=== PATIENT | male | born 1995 | race African-American/Black ===

== ENCOUNTER 2018-02-04 21:43 | Emergency (ER) | payer SELFPAY ==
[~2018-02-04] VITALS: Ht 177.8 cm; Wt 101.6 kg
[2018-02-04] MEDS ORDERED: IBUPROFEN 600 MG TAB PO STA (22:12)
== END 2018-02-04 22:35 | disposition home or self-care (01) ==
LOC: FSED 21:43
PROC: 2W3AXYZ Immobilization of Right Upper Arm using Other Device (ICD-10-PCS; principal; 2018-02-04)
DX: S46.011A Strain of muscle(s) and tendon(s) of the rotator cuff of right shoulder, initial encounter (principal); Y93.67 Activity, basketball; J45.909 Unspecified asthma, uncomplicated
CPT/HCPCS: 99283

== ENCOUNTER 2019-05-27 22:18 | Emergency (ER) | payer BC ==
[~2019-05-27] VITALS: Ht 180.3 cm; Wt 122.5 kg
--- OUTSIDE RECORDS SUMMARY | 2019-05-27 22:21 | XMS REPORT | Continuity of Care Document ---
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 Role Phone [employer] Unavailable Unavailable Problems Problem Status Onset Date Classification Date Reported Comments Source Short leg syndrome, left, acquired Active Problem 06/12/2018 Enayet Rahim Asthma, unspecified, unspecified status Active Problem 06/12/2018 Enayet Rahim Vitamin D deficiency Active Problem 06/12/2018 Enayet Rahim Screening cholesterol level Active Diagnosis 06/12/2018 Enayet Rahim Encounter to establish care Active Diagnosis 06/12/2018 Enayet Rahim Medications No Data Provided for This Section Allergies, Adverse Reactions, Alerts Substance Category Reaction Severity Reaction type Status Date Reported Comments Source Celontin Adverse Reaction anaphylaxis Adverse Reaction Active 05/29/2018 Enayet Rahim Bee venom Adverse Reaction swelling Adverse Reaction Active 05/29/2018 Enayet Rahim Amoxicillin Adverse Reaction vomiting Adverse Reaction Active 05/29/2018 Enayet Rahim Immunizations No Data Provided for This Section Results No Data Provided for This Section Pathology Reports No Data Provided for This Section Diagnostic Reports No Data Provided for This Section Consultation Notes No Data Provided for This Section Discharge Summaries No Data Provided for This Section History and Physicals No Data Provided for This Section Vital Signs Vital Sign Value Date Comments Source Weight 231 05/29/2018 Enayet Rahim Height 71 05/29/2018 Enayet Rahim Temperature Oral (F) 97.3 F 05/29/2018 Enayet Rahim Diastolic (mm Hg) 67 05/29/2018 Enayet Rahim Systolic (mm Hg) 135 05/29/2018 Enayet Rahim Encounters No Data Provided for This Section Procedures No Data Provided for This Section Assessment and Plan No Data Provided for This Section Plan of Care No Data Provided for This Section Social History No Data Provided for This Section Family History No Data Provided for This Section Advance Directives No Data Provided for This Section Functional Status No Data Provided for This Section
--- OUTSIDE RECORDS SUMMARY | 2019-05-27 22:22 | XMS REPORT ---
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 Name Role Phone Richard Potter CP Unavailable Allergies, Adverse Reactions, Alerts Substance Reaction Event Type Celontin anaphylaxis Drug Allergy Bee venom swelling Non Drug Allergy Amoxicillin vomiting Non Drug Allergy Problems Problem Type Condition Code Onset Dates Condition Status Problem Short leg syndrome, left, acquired M21.70 Active Problem Asthma, unspecified, unspecified status 493.90 Active Problem Vitamin D deficiency E55.9 Active Assessment Screening cholesterol level Z13.220 Active Assessment Vitamin D deficiency E55.9 Active Assessment Encounter to establish care Z76.89 Active Assessment Short leg syndrome, left, acquired M21.70 Active Medications No Known Medications Vital Signs Date/Time: May 29, 2018 BMI 32.21 Index Weight 231 lbs Height 71 in Temperature 97.3 F Blood Pressure Diastolic 67 mm Hg Blood Pressure Systolic 135 mm Hg Results No Known Results Summary Purpose [employer] Submission
[2019-05-27] MEDS ORDERED: CEFTRIAXONE SOD 250 MG VIAL IM ONE (23:00)
[2019-05-27] MEDS ORDERED: CEFTRIAXONE SOD 500 MG VIAL ONE (23:13)
[2019-05-27] MEDS ORDERED: LIDOCAINE HCL 1% LOCAL INJ 20 ML VIAL ONE (23:13)
== END 2019-05-27 23:39 | disposition home or self-care (01) ==
LOC: FSED 22:18
DX: R30.0 Dysuria (principal); N34.1 Nonspecific urethritis; N30.01 Acute cystitis with hematuria
CPT/HCPCS: 81003; 96372; 99282; J0696; J2001